=== PATIENT | male | born 1970 | race Caucasian/White ===

== ENCOUNTER 2017-11-02 10:06 | Observation (INO) | payer BC ==
[2017-11-02] MEDS: NS 0.9% 1000 ML* 1,000 ML IV SCH ×2 (11:40→15:31)
[2017-11-02] MEDS ORDERED: Ciprofloxacin 400MG IVPREMIX(* 400 MG/200 ML BAG IVPB SCH (12:00)
[2017-11-02] MEDS ORDERED: HYDROmorphone INJ* 0.5 MG/0.5 ML SYRINGE IV PRN (12:09)
[2017-11-02] MEDS ORDERED: Ondansetron INJ* 2 MG/ML VIAL IV PRN (12:09)
[2017-11-02] MEDS ORDERED: NS 0.9% 1000 ML* 1,000 ML IV SCH (12:15)
--- NOTE | 2017-11-02 14:46 | HP ---
CC: Dr. Kiser; Dr. Olson * ADMISSION HISTORY AND PHYSICAL: DATE OF ADMISSION: 11/02/17 This patient was admitted to the short-stay surgical unit, he was transferred from [facility] on 11/02/17. ATTENDING PROVIDER: Dr. Kiser * (DICTATED BY PRESTON FRANKLIN, DAPHNEY) CHIEF COMPLAINT: Worsening abdominal pain and vomiting. HISTORY OF PRESENT ILLNESS: The patient is a 47-year-old male with a 5-year history of what he describes as gallbladder attacks that typically resolve within several hours and with analgesics received in the emergency room. He was scheduled for a laparoscopic cholecystectomy through the [facility] in March 2017, but at that time had untreated hypertension and surgery was postponed. He has been started on 2 antihypertensives by his primary care provider, Dr. Olson with good results. More recently this past Thursday, he reports not feeling well and he took omeprazole and had the immediate onset of vomiting, which continued all day into the early mornings on Thursday. He states that he continued to eat solid food, but fluids would not stay down. On Thursday , he states that he has felt somewhat better, very tired. He was able to eat dinner, but then could not sleep; at 1 o'clock in the morning, he had the onset of right upper quadrant abdominal pain that radiated into his back and vomited. He drove himself to the [facility] in [place] at 4 o' clock in the morning where he was given some Toradol, but states that he was unhappy with the care and called his and she took him to [facility]. At [facility], his white blood cell count was 13. A random glucose was 243, total bilirubin 0.3. All of the liver function tests were within normal limits and lipase was normal as well. An ultrasound of the abdomen revealed cholelithiasis and gallbladder wall thickening and a positive Minor sign; the CAT scan of the abdomen and pelvis revealed gallstones, no acute findings, but a proximal jejunum that was fluid filled and mildly dilated with a question of a transition point in the left lower abdomen and a question of a developing small bowel obstruction. The patient was transferred to [facility]. While he was at [facility], he received a dose of Flagyl IV, a dose of Protonix IV, fentanyl, Ativan, and morphine and his pain gradually improved. Initially, his pain was rated 10/10. Currently on examination, he is pain-free and denies any nausea. He states that he had a formed stool last night, he denies any diarrhea or blood in the stool. His states that his urine has been dark yellow today. She also reported that they had contact with 1 person who had a "stomach bug" last week. PAST MEDICAL HISTORY: Significant for hypertension, esophageal spasms, kidney stones. PAST SURGICAL HISTORY: None. CURRENT MEDICATIONS: 1. Amlodipine 10 mg p.o. daily and he had not taken any since Thursday, . 2. Hydrochlorothiazide 50 mg daily, also had not taken any since Thursday, . 3. Alprazolam 0.5 mg p.o. b.i.d. 4. Omeprazole 20 mg p.o. b.i.d. ALLERGIES: VICODIN causes hallucinations and severe vomiting. FAMILY HISTORY: Parents are alive; both sides of the family have a strong history of diabetes. 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 He smokes up to 1 1/2 packs of cigarettes per day for the past 20 years. REVIEW OF SYSTEMS: Constitutional: No fevers or chills reported; no weight loss. No excessive fatigue. Pulmonary: No shortness of breath, no chronic cough. He is a smoker. Cardiovascular: He is treated for hypertension by Dr. Olson; he states that about 8 weeks ago, he was experiencing severe left- sided chest pain and left arm pain and Dr. Olson sent him for a Cardiology evaluation in [place] and he underwent a treadmill stress test, which he reports was within normal limits. He was diagnosed with esophageal spasms and since his omeprazole and Xanax have been increased to b.i.d., he has had no further chest pain. We will try to obtain those results. He could not remember who the drum straightener was that he saw in [place]. Endocrine: No diabetes, no thyroid disease. Genitourinary: He does have a history of kidney stones. No recent attacks. Gastrointestinal: As described in history of present illness. Musculoskeletal: Normal. Neurologic: Normal. General: No history of deep vein thrombosis or pulmonary embolism. N.p.o. status. Last solid foods dinner on Thursday evening, 11/01/17 and he drank a bottle of water early this morning while at [facility]. He has never had a blood transfusion and denies any bleeding tendencies and has never received anesthesia. PHYSICAL EXAMINATION GENERAL: A 47-year-old obese male, well-developed, well-nourished in no acute distress. VITAL SIGNS: Height 5 feet 8 inches, weight 200 pounds, body mass index 30.4, temperature 97.6 tympanic, pulse 74 and regular, respiratory rate 20, O2 saturation 96%, blood pressure 109/69. HEENT: Benign. Sclera anicteric. Oral mucosa dry. NECK: Supple. No cervical lymphadenopathy. LUNGS: Breath sounds bilaterally clear and equal. HEART: Regular rate and rhythm. No murmurs or rubs are appreciated. ABDOMEN: Obese, quiet, no surgical scars, soft; mildly tender in the right subcostal region. Negative Minor's sign. Otherwise nontender throughout. No guarding. No rebound tenderness. No obvious masses or organomegaly. GENITALIA AND RECTAL EXAMS: Deferred. EXTREMITIES: Warm without edema or skin ulceration. Pedal pulses palpable bilaterally. NEUROLOGIC: Alert and oriented x3. SKIN: Warm, dry, intact, anicteric IMPRESSION: Cholelithiasis, possible cholecystitis; question of small bowel obstruction. PLAN: As discussed with Dr. Kiser, admit for observation; n.p.o. IV fluids, IV antibiotics and we will obtain the results of his recent stress test; further planning per Dr. Kiser. TIME SPENT: 75 minutes with greater than 50% in [id number] history-taking and coordination of care. PRESTON FRANKLIN, DAPHNEY [id number]/[facility] #: [id number] I reviewed the above note. I saw and examined the patient and reviewed his chart. Diagnosis includes symptomatic cholelithiasis and biliary colic versus acute cholecystitis. Patient is currently asymptomatic. I discussed with him my recommendation for laparoscopic cholecystectomy. A lot of the details of the procedure, going over the risks, benefits, and alternatives. We discussed the postoperative care. After discussion, patient wished to consider strongly waiting until after racing season to undergo surgical intervention. He wanted to think about it. The plan was for follow-up in the morning on Thursday. However, patient decided to leave at 11 PM on Thursday night. The nurse was in touch with me and I agreed with having patient leave, but asked him to sign an AMA form. Plan is for follow-up in my office. Overall, I spent 35 minutes with the patient on 11/02/2017. We discussed his diagnosis, and the plan of care going forward. STARLA
[2017-11-02] MEDS: Heparin VIAL(*) 5000 UNITS/ML VIAL (FIVE THOUSAND) SUBCUT SCH ×2 (15:30→21:50)
[2017-11-02] MEDS ORDERED: Mouth Piece, Nicotine* 1 EACH CARTRIDGE INH ONE (16:00)
[2017-11-02] MEDS ORDERED: Nicotine Inhaler* 10 MG AMP INH PRN (16:00)
[2017-11-02] MEDS ORDERED: metroNIDAZOLE IV 500 MG/100ML* 500 MG/100 ML BAG IVPB SCH (19:00)
[2017-11-02 20:37] VITALS: BP 104/66
[2017-11-02] MEDS ORDERED: ALPRAZolam TAB* 0.5 MG PO SCH (21:00)
[2017-11-03] MEDS ORDERED: amLODIPine TAB* 5 MG PO SCH (09:00)
[2017-11-03] MEDS ORDERED: Pantoprazole IV* 40 MG IV SCH (09:00)
== END 2017-11-02 22:00 | disposition left against medical advice (07) ==
LOC: SSU 11:13 → INTOOBSV 11:13
PROVIDERS: ADMIT Surgery; ATTEND Surgery
DX: K80.20 Calculus of gallbladder without cholecystitis without obstruction (principal); R11.2 Nausea with vomiting, unspecified; I10 Essential (primary) hypertension; F17.210 Nicotine dependence, cigarettes, uncomplicated; Z79.899 Other long term (current) drug therapy; Z87.442 Personal history of urinary calculi; Z83.3 Family history of diabetes mellitus
CPT/HCPCS: 93005; 96361; 96365; 96372; 96375; A9270-GY; G0378; J0744; J1644; J3490